=== PATIENT | male | born 1980 | race African-American/Black ===

== ENCOUNTER 2019-02-02 14:38 | Emergency (ER) | payer OTHER ==
[~2019-02-02] VITALS: Ht 175.3 cm; Wt 120.2 kg
[2019-02-02 16:08] LABS: PLATELET COUNT 151 K/uL (142-355)
[2019-02-02 16:21] LABS: POTASSIUM 3.8 mmol/L (3.6-5.2)
[2019-02-02 16:48] VITALS: BP 171/65; TEMP 98.5
== END 2019-02-02 16:53 | disposition home or self-care (01) ==
LOC: ED 14:38
PROVIDERS: Family Medicine
DX: J11.1 Influenza due to unidentified influenza virus with other respiratory manifestations (principal); R73.9 Hyperglycemia, unspecified
CPT/HCPCS: 80053; 85027; 87502; 99283